=== PATIENT | male | born 1965 | race Caucasian/White ===

== ENCOUNTER 2017-01-06 22:31 | Emergency (ER) | payer OTHER ==
[2017-01-06 22:40] VITALS: BP 117/70; PULSE 97; RESP 18; TEMP 97.4
[2017-01-06] MEDS ORDERED: RX INFO: IV CONTRAST WAS GIVEN 1 EACH MISC MISCELLANE PRN (23:04)
[2017-01-06] MEDS ORDERED: ACETAMINOPHEN TAB 500 MG TAB PO STA (23:05)
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
[2017-01-06] MEDS ORDERED: NICOTINE 21MG/24HR PATCH TRANSDERM STA (23:54)
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
== END 2017-01-07 00:11 | disposition left against medical advice (07) ==
LOC: EC 22:31
DX: S20.312A Abrasion of left front wall of thorax, initial encounter (principal); S30.811A Abrasion of abdominal wall, initial encounter; R06.02 Shortness of breath; M54.2 Cervicalgia; M54.9 Dorsalgia, unspecified; G89.29 Other chronic pain; F17.200 Nicotine dependence, unspecified, uncomplicated; Z79.899 Other long term (current) drug therapy; Z53.29 Procedure and treatment not carried out because of patient's decision for other reasons; V18.4XXA Pedal cycle driver injured in noncollision transport accident in traffic accident, initial encounter; Y92.410 Unspecified street and highway as the place of occurrence of the external cause; Y93.55 Activity, bike riding
CPT/HCPCS: 71260; 74177; 99283; Q9967